=== PATIENT | male | born 1990 | race Caucasian/White ===

== ENCOUNTER 2016-05-18 00:18 | Emergency (ER) | payer BC ==
[~2016-05-18] VITALS: Ht 188 cm; Wt 108.0 kg
[2016-05-18 00:18] VITALS: BP 139/81; PULSE 70; RESP 18; TEMP 98; O2SAT 99
[~2016-05-18 00:18] MED LIST: IBUPROFEN
--- NOTE | 2016-05-18 00:18 | NUR ---
Patient to ER bed 6 to gown for evaluation. Side rails up. Report given to Christos SIMON.
--- NOTE | 2016-05-18 00:20 | NUR ---
ER Dr. Gloria at bedside examining patient.
--- NOTE | 2016-05-18 00:20 | NUR ---
Pt states he had an allergic reaction to an unknown substance that has lasted three days. Pt has rashed all over torso and extremities. Lung sounds clear in all lobes and neck. No dyspnea. Will continue to monitor. No other injuires or complaints mentioned/noted. No distress noted.
--- NOTE | 2016-05-18 00:20 | NUR ---
# 20 gauge angiocath placed to left ac. Use of asceptic technique. Opsite placed over site. Blood return noted. Flushed with 10 cc of normal saline. No evidence of infiltration noted. Patient tolerated well.
[2016-05-18] MEDS ORDERED: DIPHENHYDRAMINE INJ 50 MG/ML VIAL IVP ONE (00:30)
[2016-05-18] MEDS ORDERED: methylPREDNISolone SOD SUCC/PF 62.5 MG/ML VIAL ONE (00:30)
[2016-05-18] MEDS ORDERED: FAMOTIDINE PF 20 MG/2 ML VIAL IVP ONE (00:30)
[2016-05-18] MEDS ORDERED: methylPREDNISolone SOD SUCC/PF 62.5 MG/ML VIAL IVP ONE (00:30)
[2016-05-18] MEDS ORDERED: DIPHENHYDRAMINE INJ 50 MG/ML VIAL ONE (00:31)
[2016-05-18] MEDS ORDERED: FAMOTIDINE PF 20 MG/2 ML VIAL ONE (00:32)
[2016-05-18 01:00] VITALS: BP 139/81; PULSE 60; RESP 18; TEMP 98; O2SAT 99
--- NOTE | 2016-05-18 01:00 | NUR ---
Patient given written and verbal discharge instructions and verbalizes understanding. ER MD discussed with patient the results and treatment provided. Patient in stable condition. ID arm band removed. IV catheter removed intact and dressing applied, no active bleeding. Rx of Epipen and prednisone given. Patient educated on pain management and to follow up with PMD. Pain Scale 0/10. Opportunity for questions provided and answered.
== END 2016-05-18 01:00 | disposition home or self-care (01) ==
LOC: SED 00:18
DX: T78.40XA Allergy, unspecified, initial encounter (principal); L50.9 Urticaria, unspecified; R03.0 Elevated blood-pressure reading, without diagnosis of hypertension; X58.XXXA Exposure to other specified factors, initial encounter
CPT/HCPCS: 96374; 96375; 99284; J1200; J2930; J3490

== ENCOUNTER 2016-05-18 18:32 | Emergency (ER) | payer BC ==
[~2016-05-18] VITALS: Ht 188 cm; Wt 108.0 kg
[2016-05-18 18:42] VITALS: BP 155/86; PULSE 85; RESP 14; TEMP 98.9; O2SAT 96
--- NOTE | 2016-05-18 18:53 | NUR ---
Patient to ER bed 6 to gown for evaluation. Side rails up. Report given to ALFRED Guzmán.
--- NOTE | 2016-05-18 19:01 | NUR ---
Presented to ER for ontinued itching after being seen yesterday for allergic reaction. Patient is sitting in bed scratching. Non-sepcific red rash over body. Took Prednisone 40mg PO ROLL FINISHER, and Benadryl 50mg PO ROLL FINISHER without improvement.
--- NOTE | 2016-05-18 19:10 | NUR ---
[employer] Akua Thompson at bedside examining patient
[2016-05-18] MEDS ORDERED: DIPHENHYDRAMINE INJ 50 MG/ML VIAL IVP ONE (19:45)
[2016-05-18] MEDS ORDERED: methylPREDNISolone SOD SUCC/PF 62.5 MG/ML VIAL IVP ONE (19:45)
[2016-05-18] MEDS ORDERED: NACL 0.9% 1,000 ML IV ONE (19:45)
--- NOTE | 2016-05-18 20:39 | NUR ---
Patient given written and verbal discharge instructions and verbalizes understanding. ER MD discussed with patient the results and treatment provided. Given copies of tests performed in ER. Patient in stable condition. ID arm band removed. IV catheter removed intact and dressing applied, no active bleeding. Patient educated on pain management and to follow up with PMD. Pain Scale 0/10. Opportunity for questions provided and answered.
[2016-05-18 20:40] VITALS: BP 142/86; PULSE 85; RESP 14; TEMP 98.9; O2SAT 96
== END 2016-05-18 20:40 | disposition home or self-care (01) ==
LOC: SED 18:32
DX: L50.9 Urticaria, unspecified (principal)
CPT/HCPCS: 96361; 96374; 96375; 99284; J1200; J2930; J7030

== ENCOUNTER 2019-04-05 00:54 | Emergency (ER) | payer BC, OTHER ==
[~2019-04-05] VITALS: Ht 188 cm; Wt 111.6 kg
[2019-04-05 00:55] VITALS: BP_SYST 141
--- NOTE | 2019-04-05 00:55 | NUR ---
Patient to ER bed 3 to gown for evaluation. Side rails up.
--- NOTE | 2019-04-05 01:05 | NUR ---
Pt brought in by self. Pt awake, alert, oriented x4. Pt chief complaint of lower back pain. pt states exacerbating factor today was bending over at work, when his pain went to 10/10 and he found it difficult to stand, sit, walk or change position. Pt states he took motrin approx 8 hours ago with no relief. Pt states he has had mild chronic back pain since 2010, but nothing this severe. Pt denies chest pain, nausea, vomiting, shortness of breath, dizziness, numbness to extremities. Pt denies any additional medical complaint at this time. Pt VSS.
--- NOTE | 2019-04-05 01:10 | NUR ---
ER at bedside examining patient.
[2019-04-05] MEDS ORDERED: MORPHINE 2 MG/ML INJ. SYRINGE IM ONE (01:45)
--- NOTE | 2019-04-05 01:59 | NUR ---
Pt taken to radiology for CT scan.
--- NOTE | 2019-04-05 02:10 | NUR ---
Pt returned from Radiology to bed #3. Vitals stable
--- NOTE | 2019-04-05 02:11 | NUR ---
Pt resting in bed. No acute distress.
[2019-04-05] MEDS ORDERED: DEXAMETHASONE SOD PHOSPHATE 10 MG/ML VIAL IM ONE (03:00)
[2019-04-05] MEDS ORDERED: BUPIVACAINE /PF 0.25% 30 ML VIAL INJ ONE (03:00)
[2019-04-05] MEDS ORDERED: LIDOCAINE 2%, 20 ML MDV INJ ONE (03:00)
--- NOTE | 2019-04-05 03:27 | NUR ---
Pt resting in ED bed comfortably, watching videos on phone. Pt states pain has decreased.
--- NOTE | 2019-04-05 04:45 | NUR ---
Pt ambulated to determine gait, pt has steady gait and ambulates without assistance.
[2019-04-05 05:00] VITALS: BP_SYST 140
--- NOTE | 2019-04-05 05:00 | NUR ---
Patient given written and verbal discharge instructions and verbalizes understanding. ER MD discussed with patient the results and treatment provided. Patient in stable condition. ID arm band removed. No IV Rx of Robaxin, Tramadol, Motrin given. Patient educated on pain management and to follow up with PMD. Pain Scale 0/10. Opportunity for questions provided and answered. Medication side effect fact sheet provided.
== END 2019-04-05 05:00 | disposition home or self-care (01) ==
LOC: SED 00:54
DX: M54.5 Low back pain (principal)
CPT/HCPCS: 72131; 96372; 99284; J1100; J2001; J2270; J3490

== ENCOUNTER 2020-05-28 20:28 | Emergency (ER) | payer OTHER ==
[~2020-05-28] VITALS: Ht 188 cm; Wt 111.1 kg
[2020-05-28 20:32] VITALS: BP_SYST 154
[2020-05-28] MEDS ORDERED: KETOROLAC TROMETHAMINE 60 MG/2 ML VIAL IM ONE ×2 (20:59→21:00)
[2020-05-28] MEDS ORDERED: CYCLOBENZAPRINE HCL 10 MG TABLET (FLEXERIL) ONE (21:00)
[2020-05-28] MEDS ORDERED: CYCLOBENZAPRINE HCL 10 MG TABLET (FLEXERIL) PO ONE (21:00)
== END 2020-05-28 21:25 | disposition home or self-care (01) ==
LOC: SED 20:28
DX: M54.5 Low back pain (principal)
CPT/HCPCS: 99283; J1885

== ENCOUNTER 2022-08-30 10:59 | Emergency (ER) | payer OTHER ==
[~2022-08-30] VITALS: Ht 188 cm; Wt 119.3 kg
[2022-08-30 11:30] VITALS: BP_SYST 142
--- NOTE | 2022-08-30 11:45 | NUR ---
Patient to ER bed 7 to gown for evaluation. Side rails up. Report given to Ana Luisa VILLA.
--- NOTE | 2022-08-30 12:04 | NUR ---
ER at bedside examining patient.
[2022-08-30] MEDS ORDERED: KETOROLAC TROMETHAMINE 60 MG/2 ML VIAL IM ONE (12:15)
--- NOTE | 2022-08-30 12:32 | NUR ---
PT MOVED TO BED 7
[2022-08-30 12:39] LABS: BASOPHILS % (AUTO) 0.2 % (0.0-2.0); EOSINOPHILS # (AUTO) 0.1 K/uL (0.0-0.4); EOSINOPHILS % (AUTO) 1.4 % (0.0-4.0); HEMATOCRIT 45.2 % (36-54); HEMOGLOBIN 15.7 g/dL (14.0-18.0); LYMPHOCYTES # (AUTO) 2.5 K/uL (1.0-5.5); LYMPHOCYTES % (AUTO) 38.2 % (20.5-51.5); MEAN CORPUSCULAR HEMOGLOBIN 30 pg (27-31); MEAN CORPUSCULAR HGB CONC 35 % (32-36); MEAN CORPUSCULAR VOLUME 86 fL (79.0-98.0); MONOCYTES # (AUTO) 0.6 K/uL (0.0-1.0); MONOCYTES % (AUTO) 9.3 % (1.7-9.3); NEUTROPHILS # (AUTO) 3.4 K/uL (1.8-7.7); NEUTROPHILS % (AUTO) 50.9 % (40.0-70.0); PLATELET COUNT (AUTO) 163 K/uL (130-430); RED BLOOD CELL COUNT(AUTO) 5.28 MIL/uL (4.2-6.2); RED CELL DISTRIBUTION WIDTH 12.7 % (9.0-15.0); WHITE BLOOD COUNT (AUTO) 6.6 K/uL (4.8-10.8)
[2022-08-30 12:42] LABS: ANION GAP 8 (5-15); CALCIUM 8.8 mg/dL (8.4-11.0); CHLORIDE 104 mmol/L (98-107); CREATININE 1.13 mg/dL (0.55-1.30); GFR AFRICAN AMERICAN 99 mL/min (>90); GLUCOSE 96 mg/dL (70-99); UREA NITROGEN, BLOOD 22 mg/dL (8-21)
--- NOTE | 2022-08-30 12:45 | NUR ---
Patient given ice pack for pain.
[2022-08-30 12:46] LABS: ALANINE AMINOTRANSFERASE 60 U/L (12-78); ALBUMIN 4.3 g/dL (3.4-4.8); AMYLASE 45 U/L (0-100); ASPARTATE AMINOTRANSFERASE 26 U/L (10-37); LIPASE 105 U/L (73-393); TOTAL BILIRUBIN 0.6 mg/dL (0.0-1.0)
[2022-08-30 12:56] LABS: C-REACTIVE PROTEIN QUANT < 0.2 mg/dL (0-0.5)
--- NOTE | 2022-08-30 13:00 | NUR ---
Patient reports pain decrease to 4/10.
[2022-08-30 13:26] LABS: BILIRUBIN,URINE NEGATIVE (NEGATIVE); BLOOD, URINE NEGATIVE (NEGATIVE); CLARITY/URINE CLEAR (CLEAR); COLOR,URINE YELLOW (YELLOW); GLUCOSE,URINE NEGATIVE (NEGATIVE); KETONES,URINE NEGATIVE (NEGATIVE); LEUKOCYTE ESTERASE ,URINE NEGATIVE (NEGATIVE); NITRITE, URINE NEGATIVE (NEGATIVE); PROTEIN URINE NEGATIVE (NEGATIVE); UROBILINOGEN,URINE 0.2 (0.2-1.0)
[2022-08-30] MEDS ORDERED: TRAM50TA2 PO (14:00)
[2022-08-30] MEDS ORDERED: IBUP-1971 PO (14:00)
--- NOTE | 2022-08-30 14:00 | NUR ---
Patient given ice water.
[2022-08-30 14:44] VITALS: BP_SYST 142
--- NOTE | 2022-08-30 14:44 | NUR ---
Patient given written and verbal discharge instructions and verbalizes understanding. ER MD [place] discussed with patient the results and treatment provided. Patient in stable condition. ID arm band removed. Rx sent to pharmacy on file. Patient educated on pain management and to follow up with PMD. Pain Scale 4/10. Opportunity for questions provided and answered.
== END 2022-08-30 14:44 | disposition home or self-care (01) ==
LOC: SED 10:59
DX: S33.5XXA Sprain of ligaments of lumbar spine, initial encounter (principal); Z79.899 Other long term (current) drug therapy; X50.1XXA Overexertion from prolonged static or awkward postures, initial encounter; Y93.89 Activity, other specified; Y92.89 Other specified places as the place of occurrence of the external cause; Y99.8 Other external cause status
CPT/HCPCS: 99285; 74176; 80053; 82150; 83690; 85025; 86140; 36415; 72100; 76376; 96372; 83605; 81003; J1885

== ENCOUNTER 2022-12-28 19:31 | Emergency (ER) | payer OTHER ==
[~2022-12-28] VITALS: Ht 177.8 cm; Wt 102.1 kg
[~2022-12-28 19:31] MED LIST changes: +IBUP-1971 PO; +TRAM50TA2 PO
[2022-12-28 19:44] VITALS: BP_SYST 124; PULSE 82; RESP 18; TEMP 98.4; O2SAT 99
[2022-12-28] MEDS ORDERED: KETOROLAC TROMETHAMINE 60 MG/2 ML VIAL IM ONE (20:15)
[2022-12-28] MEDS ORDERED: CYCL10TA24 PO (20:22)
[2022-12-28 20:30] VITALS: BP_SYST 124; PULSE 82; RESP 18; TEMP 98.4; O2SAT 99
[2022-12-28] MEDS ORDERED: LIDOCAINE PATCH 5% 1 EA TP ONE (20:30)
== END 2022-12-28 20:30 | disposition home or self-care (01) ==
LOC: SED 19:31
DX: M54.50 Low back pain, unspecified (principal); Z79.899 Other long term (current) drug therapy
CPT/HCPCS: 99283; 96372; J1885